=== PATIENT | female | born 1980 | race Caucasian/White ===

== ENCOUNTER 2020-08-11 16:45 | Emergency (ER) | payer BC ==
[~2020-08-11] VITALS: Ht 165.1 cm; Wt 106.5 kg
[~2020-08-11 16:45] MED LIST: SULF1TAB23 PO
[2020-08-11] MEDS ORDERED: ONDANSETRON PF 4 MG/2 ML VIAL. IVP ONE (18:00)
[2020-08-11] MEDS ORDERED: IV NORMAL SALINE 1,000ML 1,000 ML IV ONE (18:00)
[2020-08-11] MEDS ORDERED: KETOROLAC 30 MG/ML VIAL. IVP ONE (18:00)
[2020-08-11 18:16] LABS: BASO % 0 % (0-3); EOS # 0.1 x10^3/uL (0.0-0.7); EOS % 1 % (0-3); HEMATOCRIT 34.9 % (36.0-47.0); HEMOGLOBIN 11.3 g/dL (12.0-15.5); LYMPH # 1.8 x10^3/uL (1.0-4.8); LYMPH % 21 % (24-48); MEAN CORPUSCULAR HEMOGLOBIN 26 pg (25-35); MEAN CORPUSCULAR HGB CONC 32 g/dL (31-37); MEAN CORPUSCULAR VOLUME 80 fL (79-100); MONO # 0.6 x10^3/uL (0.0-1.1); MONO % 7 % (0-9); NEUT # 6.2 x10^3uL (1.8-7.7); NEUT % 71 % (31-73); PLATELET COUNT 256 x10^3/uL (140-400); RED BLOOD COUNT 4.37 x10^6/uL (3.50-5.40); RED CELL DISTRIBUTION WIDTH 15.5 % (11.5-14.5); WHITE BLOOD COUNT 8.7 x10^3/uL (4.0-11.0)
[2020-08-11 18:27] LABS: BILIRUBIN,URINE NEG (NEG); CLARITY,URINE CLOUDY; COLOR,URINE RED; GLUCOSE,URINE NEG (NEG)
[2020-08-11 18:28] LABS: BACTERIA,URINE 0 /HPF (0-FEW); NITRITE,URINE NEG (NEG); RBC,URINE TNTC /HPF (0-2); SQUAMOUS EPITHELIAL CELL,UR FEW /LPF; UROBILINOGEN,URINE 0.2 mg/dL (0.2 mg/dL); WBC,URINE 0 /HPF (0-4)
[2020-08-11 18:29] LABS: CALCIUM 8.9 mg/dL (8.5-10.1); CREATININE 0.9 mg/dL (0.6-1.0); GFR 69.7; POTASSIUM 3.9 mmol/L (3.5-5.1)
[2020-08-11] MEDS ORDERED: MEDR10TA PO (19:26)
--- NOTE | 2020-08-11 19:28 | PHYS DOC ---
Past History Past Medical History: Bipolar, UTI (OSMANY DE LA TORRE APRN) Past Surgical History: Cholecystectomy, Tubal ligation, Other (OSMANY DE LA TORRE APRN) Alcohol Use: None Drug Use: None (OSMANY DE LA TORRE APRN) Adult General Chief Complaint Chief Complaint: VAGINAL BLEEDING HPI HPI Patient is a 39-year-old female presents to the emergency department with a chief complaint of increase vaginal bleeding with blood clots since having her Mirena taken out 2 days ago. Patient states she had a Mirena control placed and is a last resort before her hysterectomy coming up on September 10. Patient states it was placed by Dr. VANCE at [facility] in May. Patient states that she had adverse effects to this control and her doctor removed it 2 days ago related to pains and anxiety symptoms. Patient states since then she has been bleeding very heavy, states she called the on-call doctor who told her to come straight to the ER here to see if she needed a blood transfusion. Patient states she is soaking 1 vaginal tampon per hour with large blood clots. Patient complains of lightheadedness, slight nausea, denies any other physical complaints or physical symptoms, patient denies chest pain, vomiting, abdominal pain, nasal chest congestion, recent fever or chills. Patient denies any STI concerns. Patient denies any vaginal itching, vaginal sores. (OSMANY DE LA TORRE APRN) Review of Systems Review of Systems 14 body systems of review of systems have been reviewed. See HPI for pertinent positives and negative responses, otherwise all other systems are negative, nonpertinent or noncontributory. (OSMANY DE LA TORRE APRN) Current Medications Current Medications Current Medications Medications (Trade) Dose Ordered Sig/Silas Start Time Stop Time Status Last Admin Dose Admin Ketorolac Tromethamine (Toradol 30mg Vial) 30 mg 1X ONCE 08/11/20 18:00 08/11/20 18:03 DC 08/11/20 18:07 30 MG Medroxyprogesterone Acetate (Provera) 10 mg 1X STAT 08/11/20 17:57 08/11/20 18:03 DC 08/11/20 18:13 10 MG Ondansetron HCl (Zofran) 4 mg 1X ONCE 08/11/20 18:00 08/11/20 18:01 DC 08/11/20 18:08 4 MG Sodium Chloride 1,000 ml @ 1,000 mls/hr 1X ONCE 08/11/20 18:00 08/11/20 18:59 DC 08/11/20 18:07 1,000 MLS/HR (OSMANY DE LA TORRE APRN) Allergies Allergies Allergies Coded Allergies Type Severity Reaction Last Updated Verified cefaclor Allergy Unknown RASH 02/26/16 Yes phenazopyridine Allergy Unknown FACE SWELLING 02/26/16 Yes (OSMANY DE LA TORRE APRN) Physical Exam Physical Exam Constitutional: Well developed, well nourished, no acute distress, non-toxic appearance. 39-year-old female in no apparent distress. HENT: Normocephalic, atraumatic, bilateral external ears normal, oropharynx moist, no oral exudates, nose normal. Oropharynx moist, pink, no deep tissue infectious process appreciated, no drooling, no trismus. No lymphadenopathy of the head or neck appreciated. Eyes: PERRLA, EOMI, conjunctiva normal, no discharge. Neck: Normal range of motion, no tenderness, supple, no stridor. No nuchal rigidity, no C-spine tenderness, no meningismus signs. Cardiovascular:Heart rate regular rhythm, no murmur, heart sounds S1-S2 to auscultation. Lungs & Thorax: Bilateral breath sounds clear to auscultation no adventitious lung sounds appreciated. Abdomen: Bowel sounds normal, soft, no tenderness, no masses, no pulsatile masses. Skin: Warm, dry, no erythema, no rash. Back: No tenderness, no CVA tenderness. Extremities: No tenderness, no cyanosis, no clubbing, ROM intact, no edema. Neurologic: Alert and oriented X 3, normal motor function, normal sensory function, no focal deficits noted. Psychologic: Affect normal, judgement normal, mood normal. (OSMANY DE LA TORRE APRN) Current Patient Data Vital Signs Vital Signs Date Time Temp Pulse Resp B/P (MAP) Pulse Ox O2 Delivery O2 Flow Rate FiO2 08/11/20 17:00 98.1 88 154/93 (113) 98 08/11/20 16:45 16 Room Air Lab Results Laboratory Tests Test 08/11/20 17:34 08/11/20 18:00 Urine Collection Type Unknown Urine Color Red Urine Clarity Cloudy Urine pH 5.5 Urine Specific Townsend 1.015 Urine Protein 30 mg/dl Urine Glucose (UA) Neg mg/dL Urine Ketones (Stick) Neg mg/dL Urine Blood Large Urine Nitrite Neg Urine Bilirubin Neg Urine Urobilinogen Dipstick 0.2 mg/dL Urine Leukocyte Esterase Neg Urine RBC Tntc /HPF Urine WBC 0 /HPF Urine Squamous Epithelial Cells Few /LPF Urine Bacteria 0 /HPF White Blood Count 8.7 x10^3/uL Red Blood Count 4.37 x10^6/uL Hemoglobin 11.3 g/dL Hematocrit 34.9 % Mean Corpuscular Volume 80 fL Mean Corpuscular Hemoglobin 26 pg Mean Corpuscular Hemoglobin Concent 32 g/dL Red Cell Distribution Width 15.5 % Platelet Count 256 x10^3/uL Neutrophils (%) (Auto) 71 % Lymphocytes (%) (Auto) 21 % Monocytes (%) (Auto) 7 % Eosinophils (%) (Auto) 1 % Basophils (%) (Auto) 0 % Neutrophils # (Auto) 6.2 x10^3uL Lymphocytes # (Auto) 1.8 x10^3/uL Monocytes # (Auto) 0.6 x10^3/uL Eosinophils # (Auto) 0.1 x10^3/uL Basophils # (Auto) 0.0 x10^3/uL Sodium Level 141 mmol/L Potassium Level 3.9 mmol/L Chloride Level 105 mmol/L Carbon Dioxide Level 29 mmol/L Anion Gap 7 Blood Urea Nitrogen 8 mg/dL Creatinine 0.9 mg/dL Estimated GFR (Cockcroft-Gault) 69.7 Glucose Level 114 mg/dL Calcium Level 8.9 mg/dL Current Medications Medications (Trade) Dose Ordered Sig/Silas Route PRN Reason Start Time Stop Time Status Last Admin Dose Admin Sodium Chloride 1,000 ml @ 1,000 mls/hr 1X ONCE IV 08/11/20 18:00 08/11/20 18:59 DC 08/11/20 18:07 1,000 MLS/HR Ondansetron HCl (Zofran) 4 mg 1X ONCE IVP 08/11/20 18:00 08/11/20 18:01 DC 08/11/20 18:08 4 MG Medroxyprogesterone Acetate (Provera) 10 mg 1X STAT PO 08/11/20 17:57 08/11/20 18:03 DC 08/11/20 18:13 10 MG Ketorolac Tromethamine (Toradol 30mg Vial) 30 mg 1X ONCE IVP 08/11/20 18:00 08/11/20 18:03 DC 08/11/20 18:07 30 MG Laboratory Tests Test 08/11/20 17:34 08/11/20 18:00 Urine Collection Type Unknown Urine Color Red Urine Clarity Cloudy Urine pH 5.5 Urine Specific Townsend 1.015 Urine Protein 30 mg/dl (NEG-TRACE) Urine Glucose (UA) Neg mg/dL (NEG) Urine Ketones (Stick) Neg mg/dL (NEG) Urine Blood Large (NEG) Urine Nitrite Neg (NEG) Urine Bilirubin Neg (NEG) Urine Urobilinogen Dipstick 0.2 mg/dL (0.2 mg/dL) Urine Leukocyte Esterase Neg (NEG) Urine RBC Tntc /HPF (0-2) Urine WBC 0 /HPF (0-4) Urine Squamous Epithelial Cells Few /LPF Urine Bacteria 0 /HPF (0-FEW) White Blood Count 8.7 x10^3/uL (4.0-11.0) Red Blood Count 4.37 x10^6/uL (3.50-5.40) Hemoglobin 11.3 g/dL (12.0-15.5) L Hematocrit 34.9 % (36.0-47.0) L Mean Corpuscular Volume 80 fL (79-100) Mean Corpuscular Hemoglobin 26 pg (25-35) Mean Corpuscular Hemoglobin Concent 32 g/dL (31-37) Red Cell Distribution Width 15.5 % (11.5-14.5) H Platelet Count 256 x10^3/uL (140-400) Neutrophils (%) (Auto) 71 % (31-73) Lymphocytes (%) (Auto) 21 % (24-48) L Monocytes (%) (Auto) 7 % (0-9) Eosinophils (%) (Auto) 1 % (0-3) Basophils (%) (Auto) 0 % (0-3) Neutrophils # (Auto) 6.2 x10^3uL (1.8-7.7) Lymphocytes # (Auto) 1.8 x10^3/uL (1.0-4.8) Monocytes # (Auto) 0.6 x10^3/uL (0.0-1.1) Eosinophils # (Auto) 0.1 x10^3/uL (0.0-0.7) Basophils # (Auto) 0.0 x10^3/uL (0.0-0.2) Sodium Level 141 mmol/L (136-145) Potassium Level 3.9 mmol/L (3.5-5.1) Chloride Level 105 mmol/L (98-107) Carbon Dioxide Level 29 mmol/L (21-32) Anion Gap 7 (6-14) Blood Urea Nitrogen 8 mg/dL (7-20) Creatinine 0.9 mg/dL (0.6-1.0) Estimated GFR (Cockcroft-Gault) 69.7 Glucose Level 114 mg/dL (70-99) H Calcium Level 8.9 mg/dL (8.5-10.1) (OSMANY DE LA TORRE APRN) EKG EKG [] (OSMANY DE LA TORRE APRN) Radiology/Procedures Radiology/Procedures [] (OSMANY DE LA TORRE APRN) Heart Score C/O Chest Pain: No Risk Factors: Risk Factors: DM, Current or recent (<one month) smoker, HTN, HLP, family history of CAD, obesity. Risk Scores: Risk Factors: DM, Current or recent (<one month) smoker, HTN, HLP, family history of CAD, obesity. (OSMANY DE LA TORRE APRN) Course & Med Decision Making Course & Med Decision Making Pertinent Labs and Imaging studies reviewed. (See chart for details) 39-year-old female, vital signs reviewed, presents emergency department concerning vaginal bleeding after Mirena IUD removal. Patient physical examina tion was unremarkable, patient's vital signs were stable and within normal limits. Related to patient's chief complaint will start saline lock, draw CBC, BMP to rule out acute anemia. Will give 1 L normal saline, 4 mg IV Zofran, 30 mg IV Toradol for pain and nausea and lightheadedness. Will call patient's [employer] to discuss case and uterine bleeding management related to hysterectomy surgical appointment soon. Called and discussed patient case with patient's primary care [employer] Dr. Vance medical partner [employer] Dr. Holli Patel who recommended patient be started on 10 mg p.o. Provera 1 time a day to increase up to 3 times a day for uterine bleeding, call patient's primary [employer] Dr. Vance on Wednesday for appointment. Patient's labs equivocal, the patient was not anemic. The patient remains hemodynamically stable, upon reevaluation of patient, patient states she is pain-free and symptom-free. Discussed findings with patient, patient is amendable to plan of taking p.o. Provera and following up with primary [employer] on Wednesday. Patient gave verbal understanding of discharge home instructions, start Provera 1 time a day and progress up to 3 times a day for uterine bleeding. Following up with primary care [employer] Dr. Vance on Wednesday. Return to ER precautions and concerns, patient was thankful and ready to go home, patient was discharged home without incident. (OSMANY DE LA TORRE APRN) Dragon Disclaimer Dragon Disclaimer This electronic medical record was generated, in whole or in part, using a voice recognition dictation system. (OSMANY DE LA TORRE APRN) Attending Co-Sign The patient was seen and interviewed as well as examined at the bedside. The chart was reviewed. The case was discussed. Agree with the plan of care. (LADARIUS DIXON DO) Departure Departure: Impression: Primary Impression: Abnormal uterine bleeding Disposition: HOME / SELF CARE / HOMELESS Condition: GOOD Referrals: DOROTHY VIVEROS (PCP) Patient Instructions: Abnormal Uterine Bleeding Additional Instructions: You are seen today in the emergency department for abnormal uterine bleeding, I have spoken to your primary care [employer]'s partner Dr. Holli Patel who recommended starting you on p.o. Provera 10 mg by mouth once daily, may increase up to 3 times a day for uterine bleeding. Please call your primary care or [employer] specialist Dr. Vance on Wednesday. Return to the emergency department for worsening symptoms or other concerns. We tiffanie your labs today you were not anemic, you did not require a blood transfusion. Please increase your fluid intake at home. Please return to the emergency department for worsening symptoms or other concerns. EMERGENCY DEPARTMENT GENERAL DISCHARGE INSTRUCTIONS Thank you for coming to [facility] (ED) today and trusting us with you care. We trust that you had a positivie experience in our Emergency Department. If you wish to speak to the department management, you may call the director at [phone]. YOUR FOLLOW UP INSTRUCTIONS ARE FOLLOWS: 1. Do you have a private Doctor? If you do not have a private doctor, please ask for a resource list of physicians or clinics that may be able to assist you with follow up care. 2. The Emergency Physician has interpreted your x-rays. The X-Ray specialist will also review them. If there is a change in the findings, you will be notified in 48 hours when at all possible. 3. A lab test or culture has been done, your results will be reviewed and you will be notified if you need a change in treatment. ADDITIONAL INSTRUCTIONS AND INFORMATION: 1. Your care today has been supervised by a physician who is specially trained in emergency care. Many problems require more than one evaluation for a complete diagnosis and treatment. We recommend that you schedule your follow up appointment as recommended to ensure complete treatment of you illness or injury. If you are unable to obtain follow up care and continue to have a problem, or if your condition worsens, we recommend that you return to the ED. 2. We are not able to safely determine your condition over the phone nor are we able to give sound medical advice over the phone. For these safety reasons, if you call for medical advice we will ask you to come to the ED for further evaluation. 3. If you have any questions regarding these discharge instructions please call the ED at [phone]. SAFETY INFORMATION: In the interest of safety, wellness, and injury prevention; we encourage you to wear your sealbelt, if you smoke; quite smoking, and we encourage family to use a protective helmet for bicycling and other sporting events that present an increased risk for head injury. IF YOUR SYMPTOMS WORSEN OR NEW SYMPTOMS DEVELOP, OR YOU HAVE CONCERNS ABOUT YOUR CONDITION; OR IF YOUR CONDITION WORSENS WHILE YOU ARE WAITING FOR YOUR FOLLOW UP APPOINTMENT; EITHER CONTACT YOUR PRIMARY CARE DOCTOR, THE PHYSICIAN WHOSE NAME AND NUMBER YOU WERE GIVEN, OR RETURN TO THE ED IMMEDIATELY. Scripts Medroxyprogesterone Acetate (PROVERA) 10 Mg Tablet 10 MG PO UD for ABNORMAL UTERINE BLEEDING, #15 TAB 0 Refills Start with 1 tablet/day, may increase to 2 tablets and up to a maximum of 3 tablets/day to control uterine bleeding. Prov: OSMANY DE LA TORRE APRN 08/11/20 OSMANY DE LA TORRE APRN August 11, 2020 19:28 LADARIUS DIXON DO August 12, 2020 03:38
[2020-08-11 20:15] VITALS: BP 130/78
== END 2020-08-11 20:15 | disposition home or self-care (01) ==
LOC: ER 16:45
DX: N93.8 Other specified abnormal uterine and vaginal bleeding (principal); R42 Dizziness and giddiness; F31.9 Bipolar disorder, unspecified; Z87.440 Personal history of urinary (tract) infections; Z90.49 Acquired absence of other specified parts of digestive tract; Z98.51 Tubal ligation status; Z88.1 Allergy status to other antibiotic agents; Z88.8 Allergy status to other drugs, medicaments and biological substances
CPT/HCPCS: 36415; 80048; 81001; 85025; 96361; 96374; 96375; 99284; J1885; J2405; J7030